=== PATIENT | male | born 1950 | race African-American/Black ===

== ENCOUNTER 2018-05-25 18:07 | Inpatient (IN) ==
[2018-05-25] MEDS ORDERED: DILTIAZEM 50 MG/10 ML VIAL IV STA (18:54)
[2018-05-25] MEDS ORDERED: DILTIAZEM 25 MG/5 ML VIAL IV ONE (18:59)
[2018-05-25] MEDS ORDERED: dilTIAZem Drip 125 MG/125 ML PREMIX IV ONE (18:59)
[2018-05-25] MEDS ORDERED: dilTIAZem Drip 125 MG/125 ML PREMIX IV SCH (19:00)
[2018-05-25] MEDS ORDERED: ACETAMINOPHEN 325 MG TABLET PO PRN (19:16)
[2018-05-25] MEDS ORDERED: GLUCAGON 1 MG VIAL IM PRN (19:16)
[2018-05-25] MEDS ORDERED: DEXTROSE 50% 25 GM/50 ML VIAL IV PRN (19:16)
[2018-05-25] MEDS ORDERED: ONDANSETRON 4 MG/2 ML VIAL IV PRN (19:16)
[2018-05-25] MEDS ORDERED: MAGNESIUM SULF RIDER 2 GM in PREMIX 1 EACH IV ONE (19:16)
[2018-05-25] MEDS ORDERED: POTASSIUM CHLORIDE 20 MEQ/15 ML UDCUP PER TUBE PRN (19:20)
[2018-05-25] MEDS ORDERED: DILTIAZEM CD 120 MG CAPSULE PO STA (19:21)
[2018-05-25] MEDS ORDERED: MAGNESIUM SULF RIDER 4 GM in PREMIX 1 EACH IV PRN (19:33)
[2018-05-25] MEDS ORDERED: MAGNESIUM SULF RIDER 2 GM in PREMIX 1 EACH IV PRN (19:33)
[2018-05-25 20:24] LABS: Calcium 9.1 MG/DL (8.5-10.1); Osmolality,Calculated 281.7 MOS/KG (273-304); Potassium 3.6 MMOL/L (3.5-5.1)
[2018-05-25] MEDS: ATORVASTATIN 80 MG TABLET PO SCH (20:38)
[2018-05-25] MEDS: CARVEDILOL 12.5 MG TABLET PO SCH (20:38)
[2018-05-25] MEDS: APIXABAN 2.5 MG TABLET PO SCH (20:38)
[2018-05-25] MEDS: INSULIN REGULAR 100 UNIT/ML SUBCUT SCH (21:10)
[2018-05-26 04:12] LABS: Basophils % 0.4 % (0.0-0.8); Eosinophils # 0.1 10*3/uL (0.0-0.87); Eosinophils % 0.9 % (0.00-10.9); Hematocrit 38.8 VOL% (42.0-52.0); Hemoglobin 13.4 GM/DL (14.0-18.0); Immature Granulocytes % 0.8 %; Immature Granulocytes Absolute 0.06 #; Lymphocytes # 3.1 10*3/uL (1.4-4.0); Lymphocytes % 39.9 % (21.2-54.2); Mean Corpuscular HGB Conc 34.5 GM/DL (32-36); Mean Corpuscular Hemoglobin 35 PG (27-34); Mean Corpuscular Volume 102.4 FL (87-102); Mean Platelet Volume 11.2 FL (9.6-12.0); Monocytes # 0.7 10*3/uL (0.11-0.8); Monocytes % 9.3 % (1.7-12.7); Neutrophils # 3.8 10*3/uL (1.4-7.4); Neutrophils % 48.7 % (38.7-73.9); Platelet Count 196 T/CUMM (130-400); Red Blood Count 3.79 MC/CUMM (3.8-5.5); Red Cell Distribution Width 12.5 % (9.3-17.3); White Blood Count 7.8 T/CUMM (4-12)
[2018-05-26 04:52] LABS: Calcium 8.5 MG/DL (8.5-10.1); Osmolality,Calculated 287.3 MOS/KG (273-304); Potassium 2.8 MMOL/L (3.5-5.1); Risk Ratio 2.47; VLDL CHOLESTEROL 45.6 MG/DL
[2018-05-26] MEDS: POTASSIUM CHLORIDE 20 MEQ TABLET PO PRN ×4 (05:43→12:15)
[2018-05-26] MEDS: INSULIN REGULAR 100 UNIT/ML SUBCUT SCH ×4 (08:04→21:13)
[2018-05-26] MEDS: metFORMIN 500 MG TABLET PO SCH (08:05)
[2018-05-26] MEDS: ASPIRIN EC 81 MG TABLET PO SCH (08:05)
[2018-05-26] MEDS: CARVEDILOL 12.5 MG TABLET PO SCH ×2 (08:05→17:21)
[2018-05-26] MEDS: PANTOPRAZOLE 40 MG TABLET PO SCH (08:06)
[2018-05-26] MEDS: sitaGLIPtin 100 MG TABLET PO SCH (08:06)
[2018-05-26] MEDS: APIXABAN 2.5 MG TABLET PO SCH (08:06)
[2018-05-26] MEDS: DILTIAZEM CD 240 MG CAPSULE PO SCH (08:07)
[2018-05-26] MEDS: APIXABAN 5 MG TABLET PO SCH ×2 (08:40→21:13)
[2018-05-26] MEDS: ATORVASTATIN 80 MG TABLET PO SCH (21:13)
[2018-05-27 04:18] LABS: Basophils % 0.6 % (0.0-0.8); Eosinophils # 0.1 10*3/uL (0.0-0.87); Eosinophils % 1.1 % (0.00-10.9); Hematocrit 36.6 VOL% (42.0-52.0); Hemoglobin 12.5 GM/DL (14.0-18.0); Immature Granulocytes % 0.7 %; Immature Granulocytes Absolute 0.05 #; Lymphocytes # 3.1 10*3/uL (1.4-4.0); Lymphocytes % 44.9 % (21.2-54.2); Mean Corpuscular HGB Conc 34.2 GM/DL (32-36); Mean Corpuscular Hemoglobin 36 PG (27-34); Mean Platelet Volume 11.1 FL (9.6-12.0); Monocytes # 0.6 10*3/uL (0.11-0.8); Neutrophils # 3.1 10*3/uL (1.4-7.4); Neutrophils % 43.7 % (38.7-73.9); Platelet Count 173 T/CUMM (130-400); Red Blood Count 3.52 MC/CUMM (3.8-5.5); Red Cell Distribution Width 12.2 % (9.3-17.3)
[2018-05-27 04:36] LABS: Calcium 8.8 MG/DL (8.5-10.1); Osmolality,Calculated 283.3 MOS/KG (273-304); Potassium 3.2 MMOL/L (3.5-5.1)
[2018-05-27] MEDS: POTASSIUM CHLORIDE 20 MEQ TABLET PO PRN ×4 (06:02→12:23)
[2018-05-27] MEDS: ASPIRIN EC 81 MG TABLET PO SCH (08:22)
[2018-05-27] MEDS: PANTOPRAZOLE 40 MG TABLET PO SCH (08:23)
[2018-05-27] MEDS: CARVEDILOL 12.5 MG TABLET PO SCH (08:23)
[2018-05-27] MEDS: APIXABAN 5 MG TABLET PO SCH (08:23)
[2018-05-27] MEDS: sitaGLIPtin 100 MG TABLET PO SCH (08:23)
[2018-05-27] MEDS: DILTIAZEM CD 240 MG CAPSULE PO SCH (08:24)
[2018-05-27] MEDS: metFORMIN 500 MG TABLET PO SCH (08:26)
[2018-05-27] MEDS: INSULIN REGULAR 100 UNIT/ML SUBCUT SCH ×2 (08:38→12:19)
[2018-05-27 12:36] VITALS: BP 119/83
== END 2018-05-27 17:02 | disposition home or self-care (01) | DRG 309 ==
LOC: N.EDINP 18:07 → N.ED 18:07 → N.TELES 20:03
PROVIDERS: ADMIT Internal Medicine Infectious Disease; ATTEND Internal Medicine Infectious Disease